=== PATIENT | female | born 1965 | race Caucasian/White ===

== ENCOUNTER 2017-10-04 07:49 | Day surgery (SDC) | payer BC ==
[2017-10-04] MEDS ORDERED: LIDOCAINE 4% SOLUTION 50 ML BTL (08:49)
[2017-10-04] MEDS ORDERED: FENTAnyl 50 MCG/ML VIAL (09:46)
[2017-10-04] MEDS ORDERED: MIDAZOLAM 1 MG/ML 2 ML INJ ×2 (09:46)
== END 2017-10-04 12:07 | disposition home or self-care (01) ==
LOC: GIL 07:49
DX: Z12.11 Encounter for screening for malignant neoplasm of colon (principal); K31.7 Polyp of stomach and duodenum; K29.70 Gastritis, unspecified, without bleeding; K64.4 Residual hemorrhoidal skin tags; I10 Essential (primary) hypertension; E11.9 Type 2 diabetes mellitus without complications
CPT/HCPCS: 43239; 82962; 88305; 88312